=== PATIENT | female | born 1995 | race Caucasian/White ===

== ENCOUNTER 2017-04-20 21:45 | Emergency (ER) | payer MEDICAID ==
[~2017-04-20] VITALS: Ht 154.9 cm; Wt 86.7 kg
[2017-04-20] MEDS ORDERED: PANTOPRAZOLE 20MG TABLET ONE (22:51)
[2017-04-20] MEDS ORDERED: MAALOX/HYOSCYAMINE/LIDOCAINE 45 ML BOTTLE ONE (22:51)
[2017-04-20] MEDS ORDERED: PANTOPRAZOLE 20MG TABLET PO ONE (23:00)
[2017-04-20] MEDS ORDERED: MAALOX/HYOSCYAMINE/LIDOCAINE 45 ML BOTTLE PO ONE (23:00)
[2017-04-20 23:31] LABS: ASPARTATE AMINO TRANSFERASE 9 U/L (15-37); BLOOD UREA NITROGEN 15 mg/dL (7-18)
[2017-04-21 00:56] VITALS: BP 116/50
== END 2017-04-21 00:57 | disposition home or self-care (01) ==
LOC: ED 23:52
DX: K21.9 Gastro-esophageal reflux disease without esophagitis (principal)
CPT/HCPCS: 36415; 71010; 80053; 84703; 93005

== ENCOUNTER 2019-03-25 12:03 | Inpatient (IN) | payer MEDICAID ==
[~2019-03-25] VITALS: Ht 160 cm; Wt 92.5 kg
--- NOTE | 2019-03-25 12:40 | NUR ---
pt to XR
--- NOTE | 2019-03-25 12:49 | NUR ---
pt returned from XR
[2019-03-25] MEDS ORDERED: ONDANSETRON 2MG/ML, 2ML ONE ×2 (12:54→19:46)
[2019-03-25] MEDS ORDERED: MORPHINE SULFATE 4 MG/ML, 1ML ONE ×2 (12:54→21:38)
[2019-03-25] MEDS ORDERED: PROPOFOL 10 MG/ML, 20ML ONE ×2 (12:54→19:46)
[2019-03-25] MEDS ORDERED: SODIUM CHLORIDE FLUSH 10ML SYR IVF ONE (13:00)
--- NOTE | 2019-03-25 13:04 | NUR ---
pt upright on gurney awake & comfortable, responds approp to staff, NAD at rest, family at BS, comfort measures provided, call light withn reach.
[2019-03-25] MEDS ORDERED: PROPOFOL 10 MG/ML, 20ML IVPush ONE (13:30)
[2019-03-25] MEDS ORDERED: MORPHINE SULFATE 4 MG/ML, 1ML IVPush PRN ×2 (13:30→20:30)
[2019-03-25] MEDS ORDERED: ONDANSETRON 2MG/ML, 2ML IVPush ONE (13:30)
--- NOTE | 2019-03-25 14:01 | NUR ---
pt continues to lay on gurney awake & comfortable, responds approp to staff, NAD at rest, family at BS, comfort measures provided, call light withn reach.
--- NOTE | 2019-03-25 15:02 | NUR ---
pt remains upright on gurney awake & comfortable, tolerated procedure well, responds approp to staff, NAD at rest, family at BS, comfort measures provided, call light within reach.
--- NOTE | 2019-03-25 15:03 | NUR ---
repeat XR done at BS
--- NOTE | 2019-03-25 15:40 | NUR ---
PT GIVEN CHAPSTICK FOR COMFORT, INFORMED PT IS NPO.
[2019-03-25] MEDS ORDERED: PROPOFOL 50 ML ONE ×2 (19:29→20:39)
[2019-03-25] MEDS ORDERED: MIDAZOLAM 1 MG/ML, 2ML ONE (19:29)
[2019-03-25] MEDS ORDERED: FENTANYL PF 250 MCG/5ML ONE (19:29)
[2019-03-25] MEDS ORDERED: DEXAMETHASONE 4 MG/ML, 1ML ONE (19:46)
[2019-03-25] MEDS ORDERED: CEFAZOLIN 1,000 MG ONE ×2 (19:46)
[2019-03-25] MEDS ORDERED: BUPIVACAINE/PF-EPI 0.5% 1:200K ONE (19:51)
[2019-03-25] MEDS ORDERED: KETOROLAC 30 MG/1 ML ONE (20:02)
[2019-03-25] MEDS ORDERED: MEPERIDINE/PF 25MG/0.5ML IVPush PRN (20:30)
[2019-03-25] MEDS ORDERED: ONDANSETRON ODT 8 MG PO PRN (20:30)
[2019-03-25] MEDS ORDERED: DIPHENHYDRAMINE 50 MG/ML, 1ML IVPush PRN (20:30)
[2019-03-25] MEDS ORDERED: EPHEDRINE 50 MG/ML, 1ML IM PRN (20:30)
[2019-03-25] MEDS ORDERED: MIDAZOLAM 1 MG/ML, 2ML IV PRN (20:30)
[2019-03-25] MEDS ORDERED: DIAZEPAM 5 MG/ML, 2ML IVPush PRN (20:30)
[2019-03-25] MEDS ORDERED: ONDANSETRON 2MG/ML, 2ML IV PRN ×2 (20:30→23:30)
[2019-03-25] MEDS ORDERED: PROMETHAZINE 25 MG/ML, 1ML IV PRN (20:30)
[2019-03-25] MEDS ORDERED: OXYcodone 5 MG/5 ML ORAL.SOL UDC PO PRN ×2 (20:30→23:30)
[2019-03-25] MEDS ORDERED: BUPIVACAINE/PF-EPI 0.5% 1:200K INFIL ONE (20:35)
[2019-03-25] MEDS ORDERED: FENTANYL PF 100 MCG/2ML ONE ×2 (20:43→21:38)
[2019-03-25] MEDS ORDERED: DIPHENHYDRAMINE 25 MG CAPSULE PO PRN (21:00)
[2019-03-25] MEDS ORDERED: OXYcodone 5 MG/5 ML ORAL.SOL UDC ONE (21:39)
[2019-03-25] MEDS: FENTANYL PF 100 MCG/2ML IV PRN ×4 (21:45→22:00)
[2019-03-25] MEDS ORDERED: ACETAMINOPHEN 325 MG TABLET PO PRN (23:30)
[2019-03-25] MEDS ORDERED: PROMETHAZINE 25 MG/ML, 1ML IM PRN (23:30)
[2019-03-25] MEDS ORDERED: HYDROmorphone 2 MG/ML, 1ML IV PRN (23:30)
[2019-03-25] MEDS ORDERED: BISACODYL 10 MG SUPP PR PRN (23:30)
[2019-03-25] MEDS ORDERED: MAGNESIUM HYDROXIDE 8%, 30ML UDC PO PRN (23:30)
[2019-03-25] MEDS ORDERED: ALUMINUM/MAG/SIMETHICONE 30 ML UDC PO PRN (23:30)
[2019-03-25] MEDS ORDERED: HYDROcodone/APAP 7.5-325MG/15ML UDC PO PRN (23:30)
[2019-03-25] MEDS ORDERED: SENNA/DOCUSATE TABLET PO PRN (23:30)
[2019-03-25] MEDS ORDERED: HYDROmorphone 1 MG/ML, 1ML INJ IV PRN (23:30)
[2019-03-26] MEDS: D5%-LACTATED RINGERS 1,000 ML IV SCH ×2 (00:03→08:00)
[2019-03-26 02:00] VITALS: BP 109/58
[2019-03-26 04:00] VITALS: BP 95/59
[2019-03-26] MEDS: CEFAZOLIN PMX 2GM/50ML 50 ML IVPB SCH ×2 (04:04→11:29)
[2019-03-26 07:34] VITALS: BP 109/60
[2019-03-26] MEDS ORDERED: OXYC-307 PO (08:20)
[2019-03-26] MEDS ORDERED: ASPI81TA50 PO (08:21)
[2019-03-26] MEDS ORDERED: SODIUM CHLORIDE FLUSH 10ML SYR IVF SCH (09:00)
[2019-03-26] MEDS ORDERED: DOCUSATE 100 MG CAPSULE PO SCH (09:00)
== END 2019-03-26 13:52 | disposition home or self-care (01) | DRG 494 ==
LOC: ED 14:49 → 4NOR 15:42 → ED 15:50 → 4NOR 15:51 → DCLOUNGE 03-26 13:40
PROVIDERS: ADMIT Orthopaedic Surgery; ATTEND Orthopaedic Surgery
PROC: 0QSG04Z Reposition Right Tibia with Internal Fixation Device, Open Approach (ICD-10-PCS; principal; 2019-03-25 19:30)
DX: S82.851A Displaced trimalleolar fracture of right lower leg, initial encounter for closed fracture (principal); S93.04XA Dislocation of right ankle joint, initial encounter; J45.909 Unspecified asthma, uncomplicated; W10.8XXA Fall (on) (from) other stairs and steps, initial encounter; Y93.01 Activity, walking, marching and hiking; Y92.89 Other specified places as the place of occurrence of the external cause; Y99.8 Other external cause status
CPT/HCPCS: 73600; 73610; 76000; 99285; J7121; 96374; 96375; C1713; G0378; J0690; J1100; J1885; J2250; J2405; J2704; J3010

== ENCOUNTER 2019-05-02 04:58 | Emergency (ER) | payer MEDICAID ==
[~2019-05-02] VITALS: Ht 162.6 cm; Wt 88.2 kg
[~2019-05-02 04:58] MED LIST: ASPI81TA50 PO; OXYC-307 PO
[2019-05-02] MEDS ORDERED: SODIUM CHLORIDE 0.9% 1,000ML IVBOLUS ONE (05:30)
[2019-05-02 06:20] LABS: ALBUMIN 3.6 g/dL (3.4-5.0); ANION GAP 10 mmol/L (5-15); CALCIUM 9.2 mg/dL (8.5-10.1); CHLORIDE 106 mmol/L (98-107); CREATININE 0.68 mg/dL (0.55-1.02)
[2019-05-02 06:21] LABS: BASOPHILS # (AUTO) 0.02 x10^3/uL (0-0.1); BASOPHILS % (AUTO) 0 % (0-1); EOSINOPHILS # (AUTO) 0.18 x10^3/uL (0-0.4); EOSINOPHILS % (AUTO) 2 % (1-7); LYMPHOCYTES # (AUTO) 1.95 x10^3/uL (1-3.4); LYMPHOCYTES % (AUTO) 19 % (22-44); MD NO; MEAN CORPUSCULAR HEMOGLOBIN 28.9 pg (27.0-34.8); MEAN CORPUSCULAR HGB CONC 32.7 g/dL (32.4-35.8); MEAN CORPUSCULAR VOLUME 88.4 fL (80-100); MEAN PLATELET VOLUME 8.1 fL (7.4-10.4); MONOCYTES # (AUTO) 0.25 x10^3/uL (0.2-0.8); MONOCYTES % (AUTO) 2 % (2-9); NEUTROPHILS # (AUTO) 8.15 x10^3/uL (1.8-6.8); NEUTROPHILS % (AUTO) 77 % (42-75); PLATELET COUNT 341 x10^3/uL (130-400); RED BLOOD COUNT 4.44 x10^6/uL (3.82-5.3); RED CELL DISTRIBUTION WIDTH 13.7 % (9.6-15.2)
[2019-05-02 06:24] LABS: TROPONIN I < 0.015 ng/mL (0.000-0.045)
--- NOTE | 2019-05-02 06:29 | NUR ---
US IV PLACED. PT TO CT NOW.
[2019-05-02] MEDS ORDERED: OMNIPAQUE 350 MG/ML, 100ML BOTTLE ONE (06:39)
--- NOTE | 2019-05-02 06:40 | NUR ---
PT TO CT
--- NOTE | 2019-05-02 07:05 | NUR ---
I AM ASSUMING CARE OF THIS PT FROM ROHITH (ANDRE) AT THIS TIME. SBAR REPORT WAS EXCHANGED AT THE BEDSIDE.
[2019-05-02] MEDS ORDERED: LORazepam 1MG TABLET ONE (07:24)
[2019-05-02] MEDS ORDERED: LORazepam 1MG TABLET PO ONE (07:30)
--- NOTE | 2019-05-02 07:33 | NUR ---
ULTRASOUND IS AT THE BEDSIDE FOR STUDY.
[2019-05-02 09:18] VITALS: BP 127/85
== END 2019-05-02 09:20 | disposition home or self-care (01) ==
LOC: ED 06:02
DX: R00.2 Palpitations (principal); R06.00 Dyspnea, unspecified; S50.862A Insect bite (nonvenomous) of left forearm, initial encounter; S80.862A Insect bite (nonvenomous), left lower leg, initial encounter; S80.861A Insect bite (nonvenomous), right lower leg, initial encounter; S30.860A Insect bite (nonvenomous) of lower back and pelvis, initial encounter; K21.9 Gastro-esophageal reflux disease without esophagitis; J45.909 Unspecified asthma, uncomplicated; M79.604 Pain in right leg; M79.605 Pain in left leg; W57.XXXA Bitten or stung by nonvenomous insect and other nonvenomous arthropods, initial encounter; Y93.89 Activity, other specified; Y92.89 Other specified places as the place of occurrence of the external cause; Y99.8 Other external cause status
CPT/HCPCS: 36415; 71275; 80048; 82040; 83880; 84484; 84703; 85025; 85379; 93005; 93970; 99284; J7030; Q9967

== ENCOUNTER 2020-11-03 19:33 | Emergency (ER) | payer MEDICAID ==
[~2020-11-03] VITALS: Ht 154.9 cm; Wt 87.5 kg
--- NOTE | 2020-11-03 23:04 | NUR ---
pt to room from lobby
[2020-11-03 23:12] VITALS: BP 123/75
[2020-11-03 23:49] LABS: BASOPHILS % (AUTO) 1 % (0-1); EOSINOPHILS % (AUTO) 0 % (1-7); LYMPHOCYTES % (AUTO) 13 % (22-44); MEAN CORPUSCULAR HEMOGLOBIN 27.3 pg (27.0-34.8); MEAN CORPUSCULAR HGB CONC 32.9 g/dL (32.4-35.8); MEAN PLATELET VOLUME 7.6 fL (7.4-10.4); MONOCYTES % (AUTO) 3 % (2-9); NEUTROPHILS % (AUTO) 83 % (42-75); PLATELET COUNT 484 x10^3/uL (130-400); RED CELL DISTRIBUTION WIDTH 13.9 % (9.6-15.2)
[2020-11-03 23:50] LABS: MD NO
[2020-11-03 23:59] LABS: ALBUMIN 3.9 g/dL (3.4-5.0); ANION GAP 6 mmol/L (5-15); CALCIUM 9.3 mg/dL (8.5-10.1); CHLORIDE 105 mmol/L (98-107)
[2020-11-04 00:09] LABS: FREE T4 (FREE THYROXINE) 1.09 ng/dL (0.76-1.46)
== END 2020-11-04 00:41 | disposition home or self-care (01) ==
LOC: ED 20:03
DX: F41.1 Generalized anxiety disorder (principal); R06.02 Shortness of breath; J45.909 Unspecified asthma, uncomplicated
CPT/HCPCS: 36415; 80048; 82040; 84439; 84443; 84703; 85025; 99283; Q0177